=== PATIENT | female | born 1995 | race African-American/Black ===

== ENCOUNTER 2019-05-21 22:08 | Emergency (ER) | payer MEDICAID ==
[~2019-05-21] VITALS: Ht 167.6 cm; Wt 59.0 kg
[2019-05-21 22:12] VITALS: BP 96/60
[2019-05-22] MEDS ORDERED: IBUP-2030 PO (01:39)
[2019-05-22] MEDS ORDERED: DOXY100C2 PO (01:39)
[2019-05-23] MEDS ORDERED: FERR325T6 MT (06:29)
[2019-05-23] MEDS ORDERED: IBUP-2029 MT (06:29)
[2019-05-23] MEDS ORDERED: MULT1TAB67 MT (06:29)
== END 2019-05-21 22:20 | disposition left against medical advice (07) ==
LOC: ER 22:08
DX: O03.9 Complete or unspecified spontaneous abortion without complication (principal); O26.892 Other specified pregnancy related conditions, second trimester; R10.9 Unspecified abdominal pain; K31.89 Other diseases of stomach and duodenum; Z3A.23 23 weeks gestation of pregnancy
CPT/HCPCS: 99283